=== PATIENT | male | born 1995 | race Caucasian/White ===

== ENCOUNTER 2018-02-15 03:35 | Emergency (ER) | payer SELFPAY ==
[~2018-02-15] VITALS: Ht 172.7 cm; Wt 68.2 kg
[~2018-02-15 03:35] MED LIST: ABILIFY 10MG TA10 MG PO; ADDERALL20 MG PO; ADDERALL30 MG PO; ALLEGRA180 MG PO; CATAPRES; CELEXA 20MG20 MG/TAB PO; INTUNIV1 MG PO; MAGIC MOUTHWASH1 M1 PO; MULTIPLE VITAMI1 CAP PO; NO HOME MEDICATIONS; TYLENOL W/COD1 UDTAB PO; ZOLOFT PO
[2018-02-15 03:40] VITALS: BP 135/90; PULSE 89; TEMP 98.3
== END 2018-02-15 04:33 | disposition home or self-care (01) ==
LOC: COL.ER 03:35
DX: G43.909 Migraine, unspecified, not intractable, without status migrainosus (principal); F17.210 Nicotine dependence, cigarettes, uncomplicated; F12.90 Cannabis use, unspecified, uncomplicated
CPT/HCPCS: J1200; J2550; J7030

== ENCOUNTER 2024-04-13 12:47 | Emergency (ER) | payer SELFPAY ==
[~2024-04-13] VITALS: Ht 170.2 cm; Wt 72.7 kg
[2024-04-13 13:48] LABS: BASO % 0.5 % (0.0-2.0); EOS # 0.1 K/mm3 (0.0-0.7); EOS % 1.4 % (0.0-4.0); GRAN # 4.7 K/mm3 (1.4-6.5); GRAN % 69.8 % (42.2-75.2); HEMATOCRIT 42.9 % (42.0-52.0); HEMOGLOBIN 14.6 g/dl (13.5-18.0); LYMPH # 1.4 K/mm3 (1.2-3.4); LYMPH % 21.3 % (20.0-51.0); MEAN CELL VOLUME 91 fl (80.0-100.0); MEAN CORPUSCULAR HEMOGLOBIN 31 pg (27-31); MEAN CORPUSCULAR HGB CONC 34 g/dl (33.0-37.0); MEAN PLATELET VOLUME 9.3 fl (7.4-10.4); MONO # 0.4 K/mm3 (0.1-0.6); MONO % 6.5 % (1.7-9.3); PLATELET COUNT 275 K/mm3 (130-400); RED BLOOD COUNT 4.73 M/mm3 (4.20-5.60); REDCELL DISTRIBUTION WIDTH-CV 11.5 % (11.5-14.5)
[2024-04-13 14:10] LABS: ALANINE AMINOTRANSFERASE 11 U/L (0-55); ALBUMIN 4.2 g/dL (3.5-5.0); ALKALINE PHOSPHATASE 82 U/L (40-150); ANION GAP 8 mmol/L (7-16); AST,SGOT 11 U/L (5-34); BILIRUBIN,TOTAL 0.5 mg/dL (0.2-1.2); BLOOD UREA NITROGEN 16 mg/dL (9-21); CALCIUM 9.9 mg/dL (8.4-10.2); CHLORIDE 107 mEq/L (98-107); CREATININE, serum 0.87 mg/dL (0.72-1.25); GLUCOSE 97 mg/dL (70-99); POTASSIUM 4.1 mEq/L (3.5-4.5); SODIUM 142 mEq/L (136-145); TOTAL PROTEIN 7.3 g/dl (6.2-8.1)
[2024-04-13 14:13] LABS: ALCOHOL(ethanol),MEDICAL < 10 mg/dL (0-10); SALICYLATE < 5.0 mg/dL (15.0-30.0)
[2024-04-13 14:39] LABS: TRICYCLIC ANTIDEPRESS URINE NEGATIVE (NEGATIVE)
[2024-04-13 15:29] VITALS: BP 143/88; PULSE 92; TEMP 98.2
== END 2024-04-13 15:30 | disposition home or self-care (01) ==
LOC: COL.ER 12:47
PROVIDERS: Nurse Practitioner
DX: F19.10 Other psychoactive substance abuse, uncomplicated (principal); F17.200 Nicotine dependence, unspecified, uncomplicated